=== PATIENT | male | born 1990 | race African-American/Black ===

== ENCOUNTER 2020-10-22 20:51 | Emergency (ER) | payer MEDICAID ==
[~2020-10-22] VITALS: Ht 177.8 cm; Wt 117.1 kg
[2020-10-22 21:00] VITALS: BP 161/108
== END 2020-10-22 21:59 | disposition home or self-care (01) ==
LOC: ED 21:21
DX: K02.9 Dental caries, unspecified (principal); K08.89 Other specified disorders of teeth and supporting structures; F17.210 Nicotine dependence, cigarettes, uncomplicated
CPT/HCPCS: 64400; 99406